=== PATIENT | female | born 1970 | race Caucasian/White ===

== ENCOUNTER 2016-08-19 17:15 | Emergency (ER) | payer OTHER ==
[~2016-08-19 17:15] MED LIST: BUPR150T12 PO; ELA50 PO; LAMO150T PO; SYN.1 PO
--- NOTE | 2016-08-19 18:35 | NUR ---
NO ANSWER IN ER LOBBY
--- NOTE | 2016-08-19 18:41 | NUR ---
NO ANSWER IN ER LOBBY
== END 2016-08-19 18:35 | disposition left against medical advice (07) ==
LOC: MED 17:15
DX: R11.10 Vomiting, unspecified (principal); Z53.21 Procedure and treatment not carried out due to patient leaving prior to being seen by health care provider

== ENCOUNTER 2017-11-03 03:27 | Emergency (ER) | payer OTHER ==
[~2017-11-03] VITALS: Ht 157.5 cm; Wt 59.0 kg
--- NOTE | 2017-11-03 03:32 | NUR ---
PT TAKEN BY WHEEL CHAIR TO ER BED 03
[2017-11-03 03:33] VITALS: BP 118/73
--- NOTE | 2017-11-03 03:35 | NUR ---
Report given to Jaswant MUNGUIA.
--- NOTE | 2017-11-03 03:39 | NUR ---
PT IS A 47 Y/O FEMALE WHO PRESENTS TO THE ED C/O ANKLE PAIN. PT STATES THAT SHE FELL X1 WEEK AGO AND WAS SEEN BY PCP BUT DID NOT RECEIVE RESULTS. PT REPORTS 10/10 ACHING R ANKLE PAIN THAT DOES NOT RADIATE. NO OBVIOUS TRAUMA OR DEFORMITY. PT DENIES CP, SOB, N/V/D. PT AWAKE AND ALERT, RR EVEN/UNLABORED. PT REPOSITIONED FOR COMFORT, BED IN LOWEST POSITION. ER MD DR. DEY NOTIFIED. WILL CONTINUE TO MONITOR. hx hypothyroid, anemia, affective schizo disorder
[2017-11-03] MEDS ORDERED: KETOROLAC 60 MG/2 ML VIAL IM ONE (03:45)
--- NOTE | 2017-11-03 03:58 | NUR ---
XRAY AT BEDSIDE.
[2017-11-03 04:32] VITALS: BP 128/80
--- NOTE | 2017-11-03 04:32 | NUR ---
Patient discharged with v/s stable. Written and verbal after care instructions given and explained. Patient alert, oriented and verbalized understanding of instructions. Ambulatory with steady gait. All questions addressed prior to discharge. ID band removed. Patient advised to follow up with PMD. Rx of VOLTAREN 75MG given. Patient educated on indication of medication including possible reaction and side effects. Opportunity to ask questions provided and answered.
== END 2017-11-03 04:32 | disposition home or self-care (01) ==
LOC: MED 03:27
DX: S93.401A Sprain of unspecified ligament of right ankle, initial encounter (principal); J45.909 Unspecified asthma, uncomplicated; E03.9 Hypothyroidism, unspecified; Z79.899 Other long term (current) drug therapy; X50.1XXA Overexertion from prolonged static or awkward postures, initial encounter; Y93.89 Activity, other specified; Y92.89 Other specified places as the place of occurrence of the external cause; Y99.8 Other external cause status
CPT/HCPCS: 73610; 73630; 96372; 99284; J1885; Q0092